=== PATIENT | female | born 1935 | race Hispanic/Latino ===

== ENCOUNTER 2017-02-07 13:11 | Emergency (ER) | payer MEDICARE ==
[2017-02-07 13:55] LABS: BASOPHILS % (AUTO) 0.6 % (0.0-5.0); EOSINOPHILS % (AUTO) 0.6 % (0.0-8.0); HEMATOCRIT 35.3 % (36-48); LYMPHOCYTES % (AUTO) 15.3 % (21.0-51.0); MEAN CORPUSCULAR HEMOGLOBIN 30.4 pg (27.0-33.0); MEAN CORPUSCULAR VOLUME 89.4 fL (79-99); MONOCYTES % (AUTO) 4.7 % (3.0-13.0); NEUTROPHILS % (AUTO) 78.8 % (40.0-77.0); PLATELET COUNT (AUTO) 266 K/uL (130-400); RED BLOOD CELL COUNT(AUTO) 3.95 MIL/uL (4.00-5.50); RED CELL DISTRIBUTION WIDTH 14.3 % (11.0-15.5); WHITE BLOOD COUNT (AUTO) 9.4 K/uL (4.8-10.8)
[2017-02-07 14:04] LABS: CREATININE 0.9 mg/dL (0.5-1.5); POTASSIUM 3.7 mmol/L (3.5-5.1)
[2017-02-07] MEDS ORDERED: OSELTAMIVIR PHOSPHATE 75 MG CAP ONE (15:12)
[2017-02-07] MEDS ORDERED: MORPHINE SULFATE 4 MG/1ML SYG ONE (15:13)
== END 2017-02-07 16:10 | disposition home or self-care (01) ==
LOC: EDH 13:11
DX: J11.1 Influenza due to unidentified influenza virus with other respiratory manifestations (principal); R42 Dizziness and giddiness; I10 Essential (primary) hypertension; E78.5 Hyperlipidemia, unspecified; Z88.0 Allergy status to penicillin
CPT/HCPCS: 36415; 70450; 72125; 80048; 84484; 85025; 87804 ×2; 93005; 96372; 99285; J2270

== ENCOUNTER 2017-05-28 20:58 | Emergency (ER) | payer MEDICARE ==
[2017-05-28 21:23] LABS: BASOPHILS % (AUTO) 0.7 % (0.0-5.0); EOSINOPHILS % (AUTO) 2.2 % (0.0-8.0); HEMATOCRIT 34.5 % (36-48); LYMPHOCYTES % (AUTO) 24.4 % (21.0-51.0); MEAN CORPUSCULAR HEMOGLOBIN 29.5 pg (27.0-33.0); MEAN CORPUSCULAR HGB CONC 34.4 g/dL (32.0-36.0); MEAN CORPUSCULAR VOLUME 85.6 fL (79-99); MONOCYTES % (AUTO) 6.7 % (3.0-13.0); PLATELET COUNT (AUTO) 313 K/uL (130-400); RED BLOOD CELL COUNT(AUTO) 4.03 MIL/uL (4.00-5.50); RED CELL DISTRIBUTION WIDTH 14.5 % (11.0-15.5); WHITE BLOOD COUNT (AUTO) 7.6 K/uL (4.8-10.8)
[2017-05-28 21:36] LABS: INR 0.95 (0.85-1.15); PARTIAL THROMBOPLASTIN TIME 26.1 SEC (26.3-35.5)
[2017-05-28 21:42] LABS: ALBUMIN 3.4 g/dL (3.5-5.0); BILIRUBIN,TOTAL 0.2 mg/dL (0.2-1.0); TOTAL PROTEIN, SERUM 7.6 g/dL (6.0-8.3)
[2017-05-28] MEDS ORDERED: LABETALOL HCL 5 MG/ML 20ML VIAL IV ONE (22:45)
== END 2017-05-28 23:37 | disposition home or self-care (01) ==
LOC: EDH 20:58
DX: R20.2 Paresthesia of skin (principal); E78.5 Hyperlipidemia, unspecified; I10 Essential (primary) hypertension; M19.90 Unspecified osteoarthritis, unspecified site; R79.1 Abnormal coagulation profile
CPT/HCPCS: 36415; 70450; 80053; 82948; 84484; 85025; 85610; 85730; 93005; 96374; 99285; J3490

== ENCOUNTER 2017-07-24 16:03 | Inpatient (IN) | payer MEDICARE ==
[~2017-07-24] VITALS: Ht 149.9 cm; Wt 79.1 kg
[2017-07-24] MEDS ORDERED: ASPIRIN 325 MG TABLET ONE (17:07)
[2017-07-24 17:24] LABS: EOSINOPHILS % (AUTO) 1.2 % (0.0-8.0); LYMPHOCYTES % (AUTO) 23.3 % (21.0-51.0); MEAN CORPUSCULAR HEMOGLOBIN 29.2 pg (27.0-33.0); MEAN CORPUSCULAR HGB CONC 34.1 g/dL (32.0-36.0); MEAN CORPUSCULAR VOLUME 85.8 fL (79-99); MONOCYTES % (AUTO) 6.1 % (3.0-13.0); NEUTROPHILS % (AUTO) 68.4 % (40.0-77.0); PLATELET COUNT (AUTO) 298 K/uL (130-400); RED BLOOD CELL COUNT(AUTO) 4.31 MIL/uL (4.00-5.50); RED CELL DISTRIBUTION WIDTH 13.9 % (11.0-15.5); WHITE BLOOD COUNT (AUTO) 7.2 K/uL (4.8-10.8)
[2017-07-24 17:34] LABS: CREATININE 0.9 mg/dL (0.5-1.5); POTASSIUM 4.1 mmol/L (3.5-5.1)
[2017-07-24 17:40] LABS: ALBUMIN 3.4 g/dL (3.5-5.0); BILIRUBIN,TOTAL 0.2 mg/dL (0.2-1.0); TOTAL PROTEIN, SERUM 7.7 g/dL (6.0-8.3)
[2017-07-24 18:12] LABS: INR 0.92 (0.85-1.15); PARTIAL THROMBOPLASTIN TIME 26.2 SEC (26.3-35.5); PROTHROMBIN TIME 9.7 SEC (9.6-11.6)
[2017-07-24] MEDS ORDERED: LABETALOL HCL 5 MG/ML 20ML VIAL IV ONE (20:53)
[2017-07-24 21:37] LABS: CREATINE KINASE MB 0.6 ng/mL (0.5-3.6); CREATINE KINASE, TOTAL 36 U/L (21-232); MYOGLOBIN 27 ng/mL (10-92); TROPONIN I < 0.04 ng/mL (0.00-0.06)
[2017-07-24] MEDS ORDERED: ACETAMINOPHEN-CODEINE 300/30MG TAB ONE (22:51)
[2017-07-24] MEDS ORDERED: ACETAMINOPHEN 325 MG TAB PO PRN (23:00)
[2017-07-24] MEDS ORDERED: HYDRALAZINE HCL 20 MG/ML VIAL ONE (23:27)
[2017-07-25] VITALS (7 sets, daily range): BP systolic 97–150; BP diastolic 53–73
[2017-07-25 00:14] LABS: CREATINE KINASE MB 0.5 ng/mL (0.5-3.6); CREATINE KINASE, TOTAL 29 U/L (21-232); MYOGLOBIN 29 ng/mL (10-92); TROPONIN I < 0.04 ng/mL (0.00-0.06)
[2017-07-25] MEDS ORDERED: HYDRALAZINE HCL 20 MG/ML VIAL IV PRN (02:15)
[2017-07-25 05:28] LABS: BASOPHILS % (AUTO) 0.9 % (0.0-5.0); EOSINOPHILS % (AUTO) 1.2 % (0.0-8.0); HEMATOCRIT 33.2 % (36-48); LYMPHOCYTES % (AUTO) 19.5 % (21.0-51.0); MEAN CORPUSCULAR HEMOGLOBIN 29.6 pg (27.0-33.0); MEAN CORPUSCULAR HGB CONC 34.6 g/dL (32.0-36.0); MEAN CORPUSCULAR VOLUME 85.6 fL (79-99); MONOCYTES % (AUTO) 5.5 % (3.0-13.0); NEUTROPHILS % (AUTO) 72.9 % (40.0-77.0); PLATELET COUNT (AUTO) 302 K/uL (130-400); RED BLOOD CELL COUNT(AUTO) 3.88 MIL/uL (4.00-5.50); RED CELL DISTRIBUTION WIDTH 14.1 % (11.0-15.5); WHITE BLOOD COUNT (AUTO) 8.4 K/uL (4.8-10.8)
[2017-07-25 05:51] LABS: HEMOGLOBIN A1C 5.6 % (4.0-6.0)
[2017-07-25 05:59] LABS: CARBON DIOXIDE 26 mmol/L (21-32); CHLORIDE 107 mmol/L (101-111); CHOLESTEROL 133 mg/dL (<200); CREATINE KINASE MB 0.5 ng/mL (0.5-3.6); CREATINE KINASE, TOTAL 24 U/L (21-232); CREATININE 1.3 mg/dL (0.5-1.5); GLOMERULAR FILTR. RATE CALC 42 mL/min (>60); GLUCOSE,RANDOM 110 mg/dL (70-105); HDL CHOLESTEROL 48 mg/dL (35-85); LDL DIRECT 73 mg/dL (0-99); MYOGLOBIN 39 ng/mL (10-92); POTASSIUM 4.2 mmol/L (3.5-5.1); SODIUM SERUM 141 mmol/L (136-145); TRIGLYCERIDES 124 mg/dL (30-200); TROPONIN I < 0.04 ng/mL (0.00-0.06); UREA NITROGEN, BLOOD 16 mg/dL (7-18)
[2017-07-25] MEDS: ENOXAPARIN SODIUM 40 MG/0.4 ML SYRINGE SQ SCH (08:29)
[2017-07-25] MEDS: FAMOTIDINE 20MG TAB 20 MG TAB PO SCH ×2 (09:00→20:32)
[2017-07-25] MEDS: ASPIRIN 325MG EC TAB 325 MG TABLET.DR PO SCH (09:00)
[2017-07-26 03:34] VITALS: BP 144/81
[2017-07-26 07:37] VITALS: BP 145/78
[2017-07-26] MEDS: ASPIRIN 325MG EC TAB 325 MG TABLET.DR PO SCH (08:54)
[2017-07-26] MEDS: ENOXAPARIN SODIUM 40 MG/0.4 ML SYRINGE SQ SCH (08:54)
[2017-07-26] MEDS: FAMOTIDINE 20MG TAB 20 MG TAB PO SCH (08:54)
[2017-07-26 11:19] VITALS: BP 171/79
[2017-07-26] MEDS ORDERED: ATOR10TA PO (14:05)
[2017-07-26] MEDS ORDERED: ASPI-1005 PO (14:05)
== END 2017-07-26 15:10 | disposition home or self-care (01) | DRG 69 ==
LOC: EDH 16:03 → EDHIP 20:28 → 2AH 07-25 00:22
PROVIDERS: ADMIT Internal Medicine Nephrology; ATTEND Internal Medicine Nephrology
DX: G45.9 Transient cerebral ischemic attack, unspecified (principal); I10 Essential (primary) hypertension; M19.90 Unspecified osteoarthritis, unspecified site; M54.12 Radiculopathy, cervical region; D64.9 Anemia, unspecified; E78.5 Hyperlipidemia, unspecified; Z82.49 Family history of ischemic heart disease and other diseases of the circulatory system; Z88.0 Allergy status to penicillin
CPT/HCPCS: 36415; 70450; 70544; 71045; 80048; 80053; 80061; 82550; 82553; 83036; 83874; 84484; 85025; 85610; 85730; 93880; J0360; J1650; J3490

== ENCOUNTER 2017-07-27 17:18 | Emergency (ER) | payer MEDICARE ==
[~2017-07-27 17:18] MED LIST: ASPI-1005 PO; ATOR10TA PO
[2017-07-27] MEDS ORDERED: CLONIDINE HCL 0.1 MG TABLET ONE (19:07)
[2017-07-27] MEDS ORDERED: ACETAMINOPHEN 325 MG TAB ONE (20:48)
== END 2017-07-27 21:36 | disposition home or self-care (01) ==
LOC: EDH 17:18
DX: I67.4 Hypertensive encephalopathy (principal); E78.5 Hyperlipidemia, unspecified; I10 Essential (primary) hypertension; M19.90 Unspecified osteoarthritis, unspecified site; Z88.0 Allergy status to penicillin; Z87.891 Personal history of nicotine dependence
CPT/HCPCS: 99291

== ENCOUNTER 2017-12-20 16:49 | Emergency (ER) | payer MEDICARE ==
[2017-12-20 17:19] LABS: APPEARANCE,URINE Cloudy (CLEAR); BILIRUBIN,URINE Negative (NEGATIVE); COLOR,URINE Yellow (YELLOW); GLUCOSE, URINE (UA) Negative (NEGATIVE); KETONES,URINE Negative (NEGATIVE); LEUKOCYTE ESTERASE ,URINE Large (NEGATIVE); NITRATE,URINE Positive (NEGATIVE); OCCULT BLOOD,URINE Moderate (NEGATIVE); PROTEIN,URINE POS 1+ (NEGATIVE)
[2017-12-20 17:56] LABS: BASOPHILS % (AUTO) 1.2 % (0.0-5.0); HEMATOCRIT 38.2 % (36-48); MEAN CORPUSCULAR HEMOGLOBIN 30.1 pg (27.0-33.0); MEAN CORPUSCULAR HGB CONC 34.6 g/dL (32.0-36.0); MONOCYTES % (AUTO) 6.1 % (3.0-13.0); NEUTROPHILS % (AUTO) 74.7 % (40.0-77.0); PLATELET COUNT (AUTO) 283 K/uL (130-400); RED BLOOD CELL COUNT(AUTO) 4.39 MIL/uL (4.00-5.50); RED CELL DISTRIBUTION WIDTH 14.4 % (11.0-15.5); WHITE BLOOD COUNT (AUTO) 8.3 K/uL (4.8-10.8)
[2017-12-20 18:07] LABS: BACTERIA,URINE Moderate /HPF (None Seen); WBC,URINE >100 /HPF (0-1)
[2017-12-20 18:09] LABS: SQUAMOUS EPITHELIAL CELL,UR Few /HPF (0-2); TRANSITIONAL EPI CELLS,URINE Few /HPF (None Seen)
[2017-12-20 18:27] LABS: CREATININE 0.9 mg/dL (0.5-1.5); POTASSIUM 4.5 mmol/L (3.5-5.1)
[2017-12-20 18:31] LABS: BILIRUBIN,TOTAL 0.4 mg/dL (0.2-1.0); TOTAL PROTEIN, SERUM 7.6 g/dL (6.0-8.3)
[2017-12-20] MEDS ORDERED: OSELTAMIVIR PHOSPHATE 75 MG CAP ONE (19:57)
[2017-12-20] MEDS ORDERED: LEVOFLOXACIN 500 MG/D5W 100 ML 100 ML ONE (19:58)
== END 2017-12-20 21:18 | disposition home or self-care (01) ==
LOC: EDH 16:49
DX: J10.1 Influenza due to other identified influenza virus with other respiratory manifestations (principal); M62.81 Muscle weakness (generalized); E87.1 Hypo-osmolality and hyponatremia; E78.5 Hyperlipidemia, unspecified; I10 Essential (primary) hypertension; M81.0 Age-related osteoporosis without current pathological fracture
CPT/HCPCS: 36415; 71045; 80053; 81001; 82550; 83690; 83880; 84484; 85025; 87077; 87088; 87186; 87804 ×2; 93005; 96365; 99285; J1956

== ENCOUNTER 2018-03-17 12:21 | Emergency (ER) | payer MEDICARE ==
[~2018-03-17 12:21] MED LIST changes: +AMLO5TAB9 PO; -ATOR10TA PO; +LOSA50TA64 PO; +METO50 PO; +NITR100C4 PO; +SIMV20TA6 PO
[2018-03-17] MEDS ORDERED: BENZONATATE 100 MG CAPSULE PO ONE (13:13)
[2018-03-17 13:27] LABS: BASOPHILS % (AUTO) 0.5 % (0.0-5.0); EOSINOPHILS % (AUTO) 1.1 % (0.0-8.0); HEMATOCRIT 36.4 % (36-48); LYMPHOCYTES % (AUTO) 9.4 % (21.0-51.0); MEAN CORPUSCULAR HEMOGLOBIN 30.4 pg (27.0-33.0); MEAN CORPUSCULAR VOLUME 89.4 fL (79-99); MONOCYTES % (AUTO) 5.1 % (3.0-13.0); NEUTROPHILS % (AUTO) 83.9 % (40.0-77.0); PLATELET COUNT (AUTO) 245 K/uL (130-400); RED BLOOD CELL COUNT(AUTO) 4.07 MIL/uL (4.00-5.50); WHITE BLOOD COUNT (AUTO) 9.7 K/uL (4.8-10.8)
[2018-03-17 13:34] LABS: CREATININE 0.8 mg/dL (0.5-1.5); POTASSIUM 3.7 mmol/L (3.5-5.1)
== END 2018-03-17 15:03 | disposition home or self-care (01) ==
LOC: EDH 12:21
DX: J20.9 Acute bronchitis, unspecified (principal); R55 Syncope and collapse; I10 Essential (primary) hypertension; E78.5 Hyperlipidemia, unspecified; M19.90 Unspecified osteoarthritis, unspecified site; Z90.49 Acquired absence of other specified parts of digestive tract; Z88.0 Allergy status to penicillin; Z87.891 Personal history of nicotine dependence
CPT/HCPCS: 36415; 71045; 80048; 84484; 85025; 93005

== ENCOUNTER 2018-07-23 15:03 | Inpatient (IN) | payer MEDICARE ==
[~2018-07-23] VITALS: Ht 157.5 cm; Wt 75.7 kg
[2018-07-23 15:28] LABS: BASOPHILS % (AUTO) 0.3 % (0.0-5.0); EOSINOPHILS % (AUTO) 0.2 % (0.0-8.0); HEMATOCRIT 39.3 % (36-48); LYMPHOCYTES % (AUTO) 4.7 % (21.0-51.0); MEAN CORPUSCULAR HEMOGLOBIN 30.5 pg (27.0-33.0); MEAN CORPUSCULAR HGB CONC 33.8 g/dL (32.0-36.0); MEAN CORPUSCULAR VOLUME 90.3 fL (79-99); MONOCYTES % (AUTO) 0.3 % (3.0-13.0); NEUTROPHILS % (AUTO) 94.5 % (40.0-77.0); NUCLEATED RED BLOOD CELLS 0.1 % (0.0-0.19); PLATELET COUNT (AUTO) 256 K/uL (130-400); RED BLOOD CELL COUNT(AUTO) 4.36 MIL/uL (4.00-5.50); RED CELL DISTRIBUTION WIDTH 15.1 % (11.0-15.5); WHITE BLOOD COUNT (AUTO) 11.7 K/uL (4.8-10.8)
[2018-07-23] MEDS ORDERED: ACETAMINOPHEN EXTRA STRENGTH 500 MG TABLET ONE (15:35)
[2018-07-23] MEDS ORDERED: MEROPENEM 1 GM VIAL ONE (15:35)
[2018-07-23] MEDS ORDERED: SODIUM CHLORIDE 0.9% 1000ML 1,000 ML IV ONE (15:36)
[2018-07-23] MEDS ORDERED: SODIUM CHLORIDE 0.9% 100 ML IV ONE (15:37)
[2018-07-23 15:38] LABS: CARBON DIOXIDE 26 mmol/L (21-32); CHLORIDE 99 mmol/L (101-111); CREATININE 0.9 mg/dL (0.5-1.5); GLOMERULAR FILTR. RATE CALC 64 mL/min (>60); GLUCOSE,RANDOM 161 mg/dL (70-105); INR 0.9 (0.85-1.15); PARTIAL THROMBOPLASTIN TIME 23.5 SEC (26.3-35.5); POTASSIUM 4.3 mmol/L (3.5-5.1); PROTHROMBIN TIME 9.5 SEC (9.6-11.6); SODIUM SERUM 137 mmol/L (136-145); UREA NITROGEN, BLOOD 14 mg/dL (7-18)
[2018-07-23 15:49] LABS: ALANINE AMINOTRANSFERASE 20 U/L (12-78); ALBUMIN 3.6 g/dL (3.5-5.0); ASPARTATE AMINOTRANSFERASE 15 U/L (10-37); BILIRUBIN,TOTAL 0.5 mg/dL (0.2-1.0); CREATINE KINASE, TOTAL 30 U/L (21-232); MYOGLOBIN 16 ng/mL (10-92); TOTAL PROTEIN, SERUM 8.5 g/dL (6.0-8.3); TROPONIN I < 0.04 ng/mL (0.00-0.06)
[2018-07-23 15:57] LABS: APPEARANCE,URINE CLOUDY (CLEAR); BILIRUBIN,URINE NEGATIVE (NEGATIVE); COLOR,URINE YELLOW (YELLOW); GLUCOSE, URINE (UA) NEGATIVE (NEGATIVE); KETONES,URINE NEGATIVE (NEGATIVE); LEUKOCYTE ESTERASE ,URINE LARGE (NEGATIVE); NITRATE,URINE POSITIVE (NEGATIVE); OCCULT BLOOD,URINE MODERATE (NEGATIVE); PROTEIN,URINE 100 mg/dL (NEGATIVE)
[2018-07-23 16:00] LABS: BACTERIA,URINE Moderate /HPF (None Seen); SQUAMOUS EPITHELIAL CELL,UR Rare /HPF (0-2); WBC,URINE 26-50 /HPF (0-1)
[2018-07-23] MEDS ORDERED: ACETAMINOPHEN 325 MG TAB PO PRN (18:00)
[2018-07-23 19:53] VITALS: BP 132/75
--- NOTE | 2018-07-23 20:00 | NUR ---
[facility] Luis[facility]. is received from ER admitted for UTI /Sepsis.Pt. is awake and coherent,denies pain or any discomfort.Pt. remained SR on the monitor.Call light placed within reach and pt instructed to use call light for assistance.
[2018-07-23] MEDS: LACTATED RINGERS 1000ML 1,000 ML IV SCH (21:07)
[2018-07-23 23:42] VITALS: BP 112/64
[2018-07-24] MEDS: MEROPENEM 1 GM VIAL IVP SCH ×4 (01:08→23:19)
[2018-07-24 03:41] LABS: HEMATOCRIT 33.9 % (36-48); MEAN CORPUSCULAR HEMOGLOBIN 29.5 pg (27.0-33.0); MEAN CORPUSCULAR HGB CONC 33.3 g/dL (32.0-36.0); MEAN CORPUSCULAR VOLUME 88.5 fL (79-99); PLATELET COUNT (AUTO) 257 K/uL (130-400); RED BLOOD CELL COUNT(AUTO) 3.83 MIL/uL (4.00-5.50); RED CELL DISTRIBUTION WIDTH 14.9 % (11.0-15.5)
[2018-07-24 03:45] VITALS: BP 151/79
[2018-07-24 03:55] LABS: ALBUMIN 2.5 g/dL (3.5-5.0); BILIRUBIN,TOTAL 0.5 mg/dL (0.2-1.0); CREATININE 0.8 mg/dL (0.5-1.5); POTASSIUM 3.7 mmol/L (3.5-5.1); TOTAL PROTEIN, SERUM 6.4 g/dL (6.0-8.3)
[2018-07-24] MEDS: LACTATED RINGERS 1000ML 1,000 ML IV SCH (06:24)
[2018-07-24] MEDS ORDERED: AMLO5TAB9 PO (07:41)
[2018-07-24] MEDS ORDERED: OMEP20CA10 PO (07:41)
[2018-07-24] MEDS ORDERED: ALBU8.5H8 IH (07:41)
[2018-07-24] MEDS ORDERED: FOLI1TAB15 PO (07:41)
[2018-07-24] MEDS ORDERED: ALEN70TA10 PO (07:41)
[2018-07-24 07:42] VITALS: BP 148/82
--- NOTE | 2018-07-24 11:17 | NUR ---
NUTRITION INTERVENTION: NUTRITION NOTIFICATION FOR ANNETTE, Pt CURRENTLY ON HEART HEALTHY DIET, <25% INTAKE DUE TO DISLIKE TO FOOD. Pt REQUESTING NUTRITION SUPPLEMENT, WILL PROVIDE SUPPLEMENT BID FOR ADDED CALORIC AND PROTEIN INTAKE. Pt ENCOURAGED TO EAT MEALS- Pt REPORTS SHE WILL ATTEMPT. LBM 07/23. 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 RECOMMENDATIONS: CONTINUE CURRENT DIET THERAPY. CONSULT RD NUTRITION CONCERNS ARISE. Addendum: 07/24/18 at [address] Amended: Links added.
[2018-07-24 11:20] VITALS: BP 156/87
[2018-07-24] MEDS: AMLODIPINE BESYLATE 5 MG TAB PO SCH (12:45)
[2018-07-24] MEDS: ASPIRIN 81MG TAB.CHEW PO SCH (12:45)
[2018-07-24] MEDS: FUROSEMIDE 10 MG/ML 4ML VIAL IV SCH ×2 (12:45→21:05)
[2018-07-24] MEDS: ENOXAPARIN SODIUM 40 MG/0.4 ML SYRINGE SQ SCH (12:46)
[2018-07-24] MEDS: FOLIC ACID 1 MG TABLET PO SCH (12:47)
[2018-07-24] MEDS ORDERED: POTASSIUM CHLORIDE 20 MEQ ERTAB PO ONE (12:51)
[2018-07-24] MEDS ORDERED: POTASSIUM CHLORIDE 20 MEQ ERTAB PO PRN (13:00)
[2018-07-24] MEDS ORDERED: POTASSIUM CHLORIDE 10% ELIXIR 20 MEQ/15 ML UDCUP PO PRN (13:00)
[2018-07-24] MEDS ORDERED: LIDOCAINE HCL-MPF 1% 2ML VIAL IVP PRN (13:00)
[2018-07-24] MEDS ORDERED: POTASSIUM CHLORIDE 20MEQ/100ML 100 ML IV PRN (13:00)
[2018-07-24 15:53] VITALS: BP 154/76
--- NOTE | 2018-07-24 16:04 | NUR ---
cm note met with patient states resides home alone, uses walker for ambulation, has provider 3hrs daily to assist with her personal care, cooking, has a daughter staying with her temporarily. but feels safe to return home , has family around in [place] where she resides for any needs. dc plan is back to home at pa. states no dc needs. Addendum: 07/24/18 at 1606 by GINETTE GROSSMAN CM Amended: Links added.
[2018-07-24 19:22] VITALS: BP 114/68
[2018-07-24] MEDS: SIMVASTATIN 20 MG TABLET PO SCH (21:05)
[2018-07-24 23:24] VITALS: BP 133/83
[2018-07-25] VITALS (7 sets, daily range): BP systolic 97–145; BP diastolic 57–80
[2018-07-25 04:11] LABS: BASOPHILS % (AUTO) 0.6 % (0.0-5.0); EOSINOPHILS % (AUTO) 0.8 % (0.0-8.0); HEMATOCRIT 34.4 % (36-48); LYMPHOCYTES % (AUTO) 12.2 % (21.0-51.0); MEAN CORPUSCULAR HEMOGLOBIN 30.5 pg (27.0-33.0); MEAN CORPUSCULAR HGB CONC 34.4 g/dL (32.0-36.0); MEAN CORPUSCULAR VOLUME 88.7 fL (79-99); MONOCYTES % (AUTO) 6.9 % (3.0-13.0); NEUTROPHILS % (AUTO) 79.5 % (40.0-77.0); PLATELET COUNT (AUTO) 245 K/uL (130-400); RED BLOOD CELL COUNT(AUTO) 3.88 MIL/uL (4.00-5.50); RED CELL DISTRIBUTION WIDTH 14.8 % (11.0-15.5); WHITE BLOOD COUNT (AUTO) 11.5 K/uL (4.8-10.8)
[2018-07-25 04:22] LABS: MAGNESIUM 2.1 mg/dL (1.80-2.40); PHOSPHORUS 3.7 mg/dL (2.5-4.9); POTASSIUM 3.7 mmol/L (3.5-5.1)
[2018-07-25] MEDS: FUROSEMIDE 10 MG/ML 4ML VIAL IV SCH (05:45)
[2018-07-25] MEDS: MEROPENEM 1 GM VIAL IVP SCH ×3 (06:29→23:46)
[2018-07-25] MEDS: ASPIRIN 81MG TAB.CHEW PO SCH (08:50)
[2018-07-25] MEDS: FOLIC ACID 1 MG TABLET PO SCH (08:50)
[2018-07-25] MEDS: PANTOPRAZOLE SODIUM 40 MG TABLET.DR PO SCH (08:50)
[2018-07-25] MEDS: AMLODIPINE BESYLATE 5 MG TAB PO SCH (08:50)
[2018-07-25] MEDS: ENOXAPARIN SODIUM 40 MG/0.4 ML SYRINGE SQ SCH (08:50)
[2018-07-25] MEDS ORDERED: ENOXAPARIN SODIUM 40 MG/0.4 ML SYRINGE SQ SCH (09:00)
[2018-07-25] MEDS ORDERED: ASPIRIN 81MG TAB.CHEW PO SCH (09:00)
[2018-07-25] MEDS ORDERED: AMLODIPINE BESYLATE 5 MG TAB PO SCH (09:00)
[2018-07-25] MEDS ORDERED: LACTATED RINGERS 1000ML IV SCH (14:15)
[2018-07-25] MEDS: FUROSEMIDE 20 MG TABLET PO SCH ×2 (16:44→16:57)
[2018-07-25] MEDS: SIMVASTATIN 20 MG TABLET PO SCH (20:22)
[2018-07-26 03:45] VITALS: BP 143/67
[2018-07-26] MEDS: FUROSEMIDE 20 MG TABLET PO SCH (05:17)
[2018-07-26] MEDS: MEROPENEM 1 GM VIAL IVP SCH (06:41)
--- NOTE | 2018-07-26 07:20 | NUR ---
Pt. remained stable,resting for the most part of the night.Report given to incoming NOD using SBAR all questions answered.
[2018-07-26 07:29] VITALS: BP 115/66
[2018-07-26] MEDS ORDERED: LEVOFLOXACIN 500 MG/D5W 100 ML 100 ML IV SCH (09:00)
[2018-07-26] MEDS: PANTOPRAZOLE SODIUM 40 MG TABLET.DR PO SCH (09:27)
[2018-07-26] MEDS: AMLODIPINE BESYLATE 5 MG TAB PO SCH (09:27)
[2018-07-26] MEDS: ASPIRIN 81MG TAB.CHEW PO SCH (09:27)
[2018-07-26] MEDS: FOLIC ACID 1 MG TABLET PO SCH (09:27)
[2018-07-26] MEDS: ENOXAPARIN SODIUM 40 MG/0.4 ML SYRINGE SQ SCH (09:28)
--- NOTE | 2018-07-26 10:14 | NUR ---
ANDERS PLAN VISITED WITH PATIENT. PATIENT SAYS DAUGHTER WORKS AT A FACILITY DOES NOT KNOW WHICH CALLED OTHER DAUGHTER SAID WILL CALL SISTER BECAUSE SHE DOES NOT KNOW EITHER. GAVE HER MY NUMBER TO CALL ME BACK. PATIENT WILL NEED 10 DAYS OF ABX AND PHYSICAL THERAPY. Addendum: 07/26/18 at 1016 by YINA SYED RN CM Amended: Links added.
[2018-07-26 11:16] VITALS: BP 107/65
--- NOTE | 2018-07-26 14:24 | NUR ---
GAVE REPORT TO [facility]. PENDING FOR ADVERTISING REPRESENTATIVE.
--- NOTE | 2018-07-26 16:21 | NUR ---
DC PLAN DAUGHTER SPOKE TO NURSE SAID THAT [facility] IS THE FACILITY DAUGHTER WORKS AT. INFO SENT. PHU DONE. PATIENT ACCEPTED. Addendum: 07/26/18 at 1623 by YINA SYED RN CM Amended: Links added.
== END 2018-07-26 15:10 | DRG 872 ==
LOC: EDH 15:03 → EDHIP 17:21 → 2AH 19:35
PROVIDERS: ADMIT Internal Medicine Critical Care Medicine; ATTEND Internal Medicine Critical Care Medicine
DX: A41.51 Sepsis due to Escherichia coli [E. coli] (principal); N39.0 Urinary tract infection, site not specified; R65.20 Severe sepsis without septic shock; I10 Essential (primary) hypertension; E78.5 Hyperlipidemia, unspecified; M19.90 Unspecified osteoarthritis, unspecified site; Z88.0 Allergy status to penicillin
CPT/HCPCS: 36415; 71045; 80048; 80053; 81001; 82550; 83605; 83735; 83874; 84100; 84484; 85025; 85027; 85610; 85730; 87040; 87077; 87088; 87186; 87804; 93005; 97039; 99291; G0378; J1650; J1940; J1956; J2185; J7030; J7120

== ENCOUNTER 2018-12-11 12:45 | Emergency (ER) | payer MEDICARE ==
[~2018-12-11 12:45] MED LIST changes: +ALBU8.5H8 IH; +ALEN70TA10 PO; +FOLI1TAB15 PO; +IBUP-2070 PO; +LEVO500T2 PO; -LOSA50TA64 PO; -METO50 PO; -NITR100C4 PO; +OMEP-50 PO; +SIMV-43 PO; -SIMV20TA6 PO
[2018-12-11] MEDS ORDERED: SODIUM CHLORIDE 0.9% 500ML 500 ML IV ONE (13:37)
[2018-12-11] MEDS ORDERED: ONDANSETRON HCL 4 MG/2 ML VIAL ONE (13:37)
[2018-12-11 14:05] LABS: BASOPHILS % (AUTO) 0.6 % (0.0-5.0); EOSINOPHILS % (AUTO) 0.6 % (0.0-8.0); HEMATOCRIT 38.8 % (36-48); MEAN CORPUSCULAR HEMOGLOBIN 30.2 pg (27.0-33.0); MEAN CORPUSCULAR HGB CONC 34.6 g/dL (32.0-36.0); MEAN CORPUSCULAR VOLUME 87.2 fL (79-99); MONOCYTES % (AUTO) 4.3 % (3.0-13.0); NEUTROPHILS % (AUTO) 79.5 % (40.0-77.0); NUCLEATED RED BLOOD CELLS 0.1 % (0.0-0.19); PLATELET COUNT (AUTO) 307 K/uL (130-400); RED BLOOD CELL COUNT(AUTO) 4.45 MIL/uL (4.00-5.50); RED CELL DISTRIBUTION WIDTH 14.4 % (11.0-15.5); WHITE BLOOD COUNT (AUTO) 10.3 K/uL (4.8-10.8)
[2018-12-11 14:11] LABS: POTASSIUM 4.1 mmol/L (3.5-5.1)
[2018-12-11 14:16] LABS: ALBUMIN 3.4 g/dL (3.5-5.0); BILIRUBIN,DIRECT 0.1 mg/dL (0.0-0.3); BILIRUBIN,TOTAL 0.3 mg/dL (0.2-1.0); TOTAL PROTEIN, SERUM 8.4 g/dL (6.0-8.3)
[2018-12-11 14:28] LABS: B-TYPE NATRIURETIC PEPTIDE 28 pg/mL (0-100)
[2018-12-11 14:39] LABS: APPEARANCE,URINE Clear (CLEAR); BILIRUBIN,URINE Negative (NEGATIVE); COLOR,URINE Yellow (YELLOW); GLUCOSE, URINE (UA) Negative (NEGATIVE); KETONES,URINE Negative (NEGATIVE); LEUKOCYTE ESTERASE ,URINE Moderate (NEGATIVE); NITRATE,URINE Negative (NEGATIVE); OCCULT BLOOD,URINE Negative (NEGATIVE); PROTEIN,URINE Negative (NEGATIVE)
[2018-12-11 14:55] LABS: BACTERIA,URINE Few /HPF (None Seen); RBC,URINE None Seen /HPF (0-1)
== END 2018-12-11 15:19 | disposition home or self-care (01) ==
LOC: EDH 12:45
DX: R53.1 Weakness (principal); R42 Dizziness and giddiness; I10 Essential (primary) hypertension; E78.5 Hyperlipidemia, unspecified; M19.90 Unspecified osteoarthritis, unspecified site; Z90.49 Acquired absence of other specified parts of digestive tract; Z88.0 Allergy status to penicillin; Z87.891 Personal history of nicotine dependence
CPT/HCPCS: 36415; 70450; 80048; 80076; 81001; 82550; 83880; 84484; 85025; 93005; 96374; 99285; J2405; J7040

== ENCOUNTER 2020-05-28 | Emergency (ER) | payer MEDICARE ==
[~2020-05-28] MED LIST changes: -ALEN70TA10 PO; +ALEN70TA80 PO; +AMLO-257 PO; -AMLO5TAB9 PO; -OMEP-50 PO; +OMEP20CA12 PO
[2020-05-28 00:42] LABS: CREATININE 1.1 mg/dL (0.5-1.5); POTASSIUM 3.9 mmol/L (3.5-5.1)
[2020-05-28 00:47] LABS: ALBUMIN 3.4 g/dL (3.5-5.0); BILIRUBIN,TOTAL 0.2 mg/dL (0.2-1.0); TOTAL PROTEIN, SERUM 8.1 g/dL (6.0-8.3)
[2020-05-28 00:52] LABS: BASOPHILS % (AUTO) 0.4 % (0.0-5.0); EOSINOPHILS % (AUTO) 2.9 % (0.0-8.0); HEMATOCRIT 38.3 % (36-48); LYMPHOCYTES % (AUTO) 28.1 % (21.0-51.0); MEAN CORPUSCULAR HEMOGLOBIN 29.1 pg (27.0-33.0); MEAN CORPUSCULAR HGB CONC 33.7 g/dL (32.0-36.0); MEAN CORPUSCULAR VOLUME 86.5 fL (79-99); MONOCYTES % (AUTO) 7.3 % (3.0-13.0); NEUTROPHILS % (AUTO) 60.9 % (40.0-77.0); PLATELET COUNT (AUTO) 290 K/uL (130-400); RED BLOOD CELL COUNT(AUTO) 4.43 MIL/uL (4.00-5.50); RED CELL DISTRIBUTION WIDTH 13.3 % (11.0-15.5); WHITE BLOOD COUNT (AUTO) 7.5 K/uL (4.8-10.8)
[2020-05-28] MEDS ORDERED: IOHEXOL 350 MG/ML 100ML INFUS..BTL IV ONE (01:27)
[2020-05-28 01:31] LABS: APPEARANCE,URINE Clear (CLEAR); BILIRUBIN,URINE Negative (NEGATIVE); COLOR,URINE Yellow (YELLOW); GLUCOSE, URINE (UA) Negative (NEGATIVE); KETONES,URINE Negative (NEGATIVE); LEUKOCYTE ESTERASE ,URINE Negative (NEGATIVE); NITRATE,URINE Negative (NEGATIVE); OCCULT BLOOD,URINE Negative (NEGATIVE); PH,URINE 6.5 (5.0-8.0); PROTEIN,URINE Negative (NEGATIVE); UROBILINOGEN,URINE 0.2 mg/dL (0.2-1.0)
== END 2020-05-28 06:42 | disposition home or self-care (01) ==
LOC: EDH
DX: R47.81 Slurred speech (principal); M19.90 Unspecified osteoarthritis, unspecified site; E78.5 Hyperlipidemia, unspecified; I10 Essential (primary) hypertension; Z90.49 Acquired absence of other specified parts of digestive tract; Z88.0 Allergy status to penicillin
CPT/HCPCS: 36415; 70450; 70496; 70498; 80053; 81003; 85025; 99285; Q9967

== ENCOUNTER 2020-07-30 15:22 | Observation (INO) | payer MEDICARE ==
[~2020-07-30] VITALS: Ht 142.2 cm; Wt 80.1 kg
[2020-07-30 15:24] VITALS: BP 114/63
[2020-07-30 16:00] LABS: BASOPHILS % (AUTO) 0.6 % (0.0-5.0); HEMATOCRIT 36.9 % (36-48); LYMPHOCYTES % (AUTO) 21.2 % (21.0-51.0); MEAN CORPUSCULAR HEMOGLOBIN 28.8 pg (27.0-33.0); MEAN CORPUSCULAR HGB CONC 33.1 g/dL (32.0-36.0); MONOCYTES % (AUTO) 6.3 % (3.0-13.0); NEUTROPHILS % (AUTO) 70.4 % (40.0-77.0); PLATELET COUNT (AUTO) 328 K/uL (130-400); RED BLOOD CELL COUNT(AUTO) 4.24 MIL/uL (4.00-5.50); RED CELL DISTRIBUTION WIDTH 13.2 % (11.0-15.5); WHITE BLOOD COUNT (AUTO) 8.2 K/uL (4.8-10.8)
[2020-07-30 16:11] LABS: CARBON DIOXIDE 24 mmol/L (21-32); CHLORIDE 101 mmol/L (101-111); CREATININE 1.2 mg/dL (0.5-1.5); GLOMERULAR FILTR. RATE CALC 46 mL/min (>60); GLUCOSE,RANDOM 117 mg/dL (70-105); POTASSIUM 4.4 mmol/L (3.5-5.1); SODIUM SERUM 135 mmol/L (136-145); UREA NITROGEN, BLOOD 15 mg/dL (7-18)
[2020-07-30 16:12] LABS: PROTHROMBIN TIME 10.9 SEC (9.6-11.6)
[2020-07-30 16:14] LABS: PARTIAL THROMBOPLASTIN TIME 25.8 SEC (26.3-35.5)
[2020-07-30 16:22] LABS: ALANINE AMINOTRANSFERASE 21 U/L (12-78); ALBUMIN 3.5 g/dL (3.5-5.0); ASPARTATE AMINOTRANSFERASE 21 U/L (10-37); BILIRUBIN,TOTAL 0.2 mg/dL (0.2-1.0); CREATINE KINASE, TOTAL 60 U/L (21-232); MYOGLOBIN 48 ng/mL (10-92); TOTAL PROTEIN, SERUM 8.2 g/dL (6.0-8.3); TROPONIN I < 0.04 ng/mL (0.00-0.06)
[2020-07-30 16:34] LABS: B-TYPE NATRIURETIC PEPTIDE 72 pg/mL (0-100)
[2020-07-30 17:26] VITALS: BP 140/73
[2020-07-30] MEDS ORDERED: ACETAMINOPHEN 325 MG TAB ONE (17:44)
[2020-07-30] MEDS ORDERED: ACETAMINOPHEN 325 MG TAB PO ONE (17:45)
[2020-07-30 21:38] VITALS: BP 128/62
[2020-07-31 06:20] VITALS: BP 150/73
[2020-07-31 06:45] LABS: HEMATOCRIT 36.1 % (36-48); MEAN CORPUSCULAR HEMOGLOBIN 29.5 pg (27.0-33.0); MEAN CORPUSCULAR HGB CONC 33.8 g/dL (32.0-36.0); MEAN CORPUSCULAR VOLUME 87.2 fL (79-99); PLATELET COUNT (AUTO) 288 K/uL (130-400); RED BLOOD CELL COUNT(AUTO) 4.14 MIL/uL (4.00-5.50); RED CELL DISTRIBUTION WIDTH 13.1 % (11.0-15.5); WHITE BLOOD COUNT (AUTO) 6.7 K/uL (4.8-10.8)
[2020-07-31 07:06] LABS: CARBON DIOXIDE 24 mmol/L (21-32); CHLORIDE 105 mmol/L (101-111); CREATINE KINASE, TOTAL 47 U/L (21-232); GLOMERULAR FILTR. RATE CALC 56 mL/min (>60); GLUCOSE,RANDOM 99 mg/dL (70-105); MYOGLOBIN 50 ng/mL (10-92); POTASSIUM 4.3 mmol/L (3.5-5.1); SODIUM SERUM 139 mmol/L (136-145); TROPONIN I < 0.04 ng/mL (0.00-0.06); UREA NITROGEN, BLOOD 14 mg/dL (7-18)
[2020-07-31 07:38] LABS: EOSINOPHILS % (MANUAL) 3 % (1-6); LYMPHOCYTES % (MANUAL) 24 % (22-44); MAN.DIFF COMMENT-IMPRESSION MANUAL DIFFERENTIAL; MONOCYTES % (MANUAL) 6 % (2-9); SEGMENTED NEUTROPHILS % 67 % (40-70)
[2020-07-31 07:40] LABS: PLATELET MORPHOLOGY COMMENT ADEQUATE
[2020-07-31 08:00] VITALS: BP 127/56
[2020-07-31 11:57] VITALS: BP 134/67
[2020-07-31] MEDS ORDERED: NAPR-1196 PO (15:00)
[2020-07-31] MEDS ORDERED: ERGO500093 PO (15:07)
[2020-07-31] MEDS ORDERED: AMLO-258 PO (15:07)
[2020-07-31 16:00] VITALS: BP 146/72
[2020-07-31 19:58] VITALS: BP 111/57
[2020-07-31] MEDS ORDERED: ACETAMINOPHEN 325 MG TAB PO PRN (20:30)
[2020-07-31] MEDS ORDERED: ONDANSETRON 4MG INJ IVP PRN (20:30)
[2020-08-01] VITALS (8 sets, daily range): BP systolic 102–140; BP diastolic 44–65
[2020-08-02 00:55] VITALS: BP 138/57
[2020-08-02 04:07] VITALS: BP 130/61
[2020-08-02 07:30] VITALS: BP 114/61
[2020-08-02 11:00] VITALS: BP 132/54
== END 2020-08-02 15:00 | disposition home or self-care (01) ==
LOC: EDH 15:22 → EDHIP 18:30 → 3DH 07-31 06:19
PROVIDERS: ADMIT Internal Medicine Infectious Disease; ATTEND Internal Medicine Infectious Disease
DX: R55 Syncope and collapse (principal); I10 Essential (primary) hypertension; E78.5 Hyperlipidemia, unspecified; I25.10 Atherosclerotic heart disease of native coronary artery without angina pectoris; I63.9 Cerebral infarction, unspecified; D84.9 Immunodeficiency, unspecified; E78.00 Pure hypercholesterolemia, unspecified; E66.9 Obesity, unspecified; Z79.899 Other long term (current) drug therapy
CPT/HCPCS: 36415 ×2; 70450; 71045; 80048; 80053; 82550 ×2; 83735; 83874 ×2; 83880; 84484 ×3; 85025 ×2; 85610; 85730; 93005; 93880; 99285; G0378 ×69

== ENCOUNTER 2020-09-02 13:05 | Emergency (ER) | payer MEDICARE ==
[~2020-09-02] VITALS: Ht 132.1 cm; Wt 80.3 kg
[~2020-09-02 13:05] MED LIST changes: -ALBU8.5H8 IH; -ALEN70TA80 PO; -AMLO-257 PO; +AMLO-258 PO; -ASPI-1005 PO; +ERGO500093 PO; -FOLI1TAB15 PO; -IBUP-2070 PO; -LEVO500T2 PO; +NAPR-1196 PO; -OMEP20CA12 PO; -SIMV-43 PO
[2020-09-02 13:09] VITALS: BP 116/52
[2020-09-02 14:16] VITALS: BP 116/48
[2020-09-02 14:21] LABS: BASOPHILS % (AUTO) 0.3 % (0.0-5.0); EOSINOPHILS % (AUTO) 0.4 % (0.0-8.0); HEMATOCRIT 37.1 % (36-48); MEAN CORPUSCULAR HEMOGLOBIN 29.2 pg (27.0-33.0); MEAN CORPUSCULAR HGB CONC 33.2 g/dL (32.0-36.0); MEAN CORPUSCULAR VOLUME 88.1 fL (79-99); MONOCYTES % (AUTO) 3.9 % (3.0-13.0); PLATELET COUNT (AUTO) 323 K/uL (130-400); RED BLOOD CELL COUNT(AUTO) 4.21 MIL/uL (4.00-5.50); WHITE BLOOD COUNT (AUTO) 9.2 K/uL (4.8-10.8)
[2020-09-02 14:34] LABS: CARBON DIOXIDE 25 mmol/L (21-32); CHLORIDE 100 mmol/L (101-111); CREATININE 1.1 mg/dL (0.5-1.5); GLOMERULAR FILTR. RATE CALC 51 mL/min (>60); GLUCOSE,RANDOM 117 mg/dL (70-105); POTASSIUM 4.1 mmol/L (3.5-5.1); SODIUM SERUM 136 mmol/L (136-145); UREA NITROGEN, BLOOD 12 mg/dL (7-18)
[2020-09-02 14:53] LABS: ALANINE AMINOTRANSFERASE 16 U/L (12-78); ALBUMIN 3.3 g/dL (3.5-5.0); ASPARTATE AMINOTRANSFERASE 17 U/L (10-37); BILIRUBIN,TOTAL 0.3 mg/dL (0.2-1.0); CREATINE KINASE, TOTAL 78 U/L (21-232); TROPONIN I < 0.04 ng/mL (0.00-0.06)
[2020-09-02 15:09] LABS: MYOGLOBIN 62 ng/mL (10-92)
[2020-09-02] MEDS ORDERED: NAPR-1180 PO (16:01)
[2020-09-02 16:20] VITALS: BP 148/76
[2020-09-02] MEDS ORDERED: NAPROXEN 250 MG TAB PO SCH (16:30)
[2020-09-02] MEDS ORDERED: NAPROXEN 250 MG TAB ONE (16:31)
== END 2020-09-02 16:42 | disposition home or self-care (01) ==
LOC: EDH 13:05
DX: R51.9 Headache, unspecified (principal); R42 Dizziness and giddiness; I10 Essential (primary) hypertension; Z88.0 Allergy status to penicillin; Z79.1 Long term (current) use of non-steroidal anti-inflammatories (NSAID)
CPT/HCPCS: 36415; 70450; 80053; 82550; 83874; 84484; 85025; 93005

== ENCOUNTER 2020-11-04 21:08 | Emergency (ER) | payer MEDICARE ==
[~2020-11-04 21:08] MED LIST changes: +NAPR-1180 PO
[2020-11-04 21:17] VITALS: BP 140/61
[2020-11-04 21:46] LABS: BASOPHILS % (AUTO) 0.6 % (0.0-5.0); EOSINOPHILS % (AUTO) 1.7 % (0.0-8.0); HEMATOCRIT 36.8 % (36-48); LYMPHOCYTES % (AUTO) 18.9 % (21.0-51.0); MEAN CORPUSCULAR HGB CONC 33.7 g/dL (32.0-36.0); MEAN CORPUSCULAR VOLUME 86.2 fL (79-99); MONOCYTES % (AUTO) 5.8 % (3.0-13.0); NEUTROPHILS % (AUTO) 72.5 % (40.0-77.0); PLATELET COUNT (AUTO) 309 K/uL (130-400); RED BLOOD CELL COUNT(AUTO) 4.27 MIL/uL (4.00-5.50); RED CELL DISTRIBUTION WIDTH 13.2 % (11.0-15.5); WHITE BLOOD COUNT (AUTO) 10.3 K/uL (4.8-10.8)
[2020-11-04 21:49] LABS: APPEARANCE,URINE Clear (CLEAR); BILIRUBIN,URINE Negative (NEGATIVE); COLOR,URINE Yellow (YELLOW); GLUCOSE, URINE (UA) Negative (NEGATIVE); KETONES,URINE Negative (NEGATIVE); LEUKOCYTE ESTERASE ,URINE Negative (NEGATIVE); NITRATE,URINE Negative (NEGATIVE); OCCULT BLOOD,URINE Negative (NEGATIVE); PH,URINE 5.5 (5.0-8.0); PROTEIN,URINE Negative (NEGATIVE)
[2020-11-04 21:56] LABS: CREATININE 0.9 mg/dL (0.5-1.5); POTASSIUM 3.4 mmol/L (3.5-5.1)
[2020-11-04] MEDS ORDERED: MORPHINE 4 MG SYG IM ONE (22:00)
[2020-11-04 22:01] LABS: ALBUMIN 2.9 g/dL (3.5-5.0); BILIRUBIN,TOTAL 0.2 mg/dL (0.2-1.0); TOTAL PROTEIN, SERUM 7.8 g/dL (6.0-8.3)
[2020-11-04 22:29] VITALS: BP 133/62
[2020-11-04 23:22] VITALS: BP 111/57
[2020-11-05 00:17] VITALS: BP 129/66
[2020-11-05 01:47] VITALS: BP 120/42
[2020-11-05 02:22] VITALS: BP_SYST 107; BP_SYST 127; BP_DIAS 62; BP_DIAS 63
== END 2020-11-05 03:14 | disposition home or self-care (01) ==
LOC: EDH 21:08
DX: R10.30 Lower abdominal pain, unspecified (principal); I10 Essential (primary) hypertension; E78.00 Pure hypercholesterolemia, unspecified; M19.90 Unspecified osteoarthritis, unspecified site; Z79.1 Long term (current) use of non-steroidal anti-inflammatories (NSAID); Z88.0 Allergy status to penicillin; Z90.49 Acquired absence of other specified parts of digestive tract
CPT/HCPCS: 36415; 74176; 80053; 81003; 83690; 84484; 85025; 93005; 96372; 99285; J2270

== ENCOUNTER 2021-01-30 11:22 | Emergency (ER) | payer MEDICARE ==
[~2021-01-30] VITALS: Ht 167.6 cm; Wt 86.2 kg
[2021-01-30 11:39] LABS: BASOPHILS % (AUTO) 0.6 % (0.0-5.0); EOSINOPHILS % (AUTO) 3.3 % (0.0-8.0); HEMATOCRIT 39.2 % (36-48); LYMPHOCYTES % (AUTO) 17.8 % (21.0-51.0); MEAN CORPUSCULAR HEMOGLOBIN 28.8 pg (27.0-33.0); MEAN CORPUSCULAR HGB CONC 32.7 g/dL (32.0-36.0); MEAN CORPUSCULAR VOLUME 88.1 fL (79-99); MONOCYTES % (AUTO) 4.3 % (3.0-13.0); NEUTROPHILS % (AUTO) 73.5 % (40.0-77.0); PLATELET COUNT (AUTO) 291 K/uL (130-400); RED BLOOD CELL COUNT(AUTO) 4.45 MIL/uL (4.00-5.50); RED CELL DISTRIBUTION WIDTH 14.2 % (11.0-15.5); WHITE BLOOD COUNT (AUTO) 8.4 K/uL (4.8-10.8)
[2021-01-30 11:55] LABS: POTASSIUM 3.9 mmol/L (3.5-5.1)
[2021-01-30 11:59] LABS: ALBUMIN 3.1 g/dL (3.5-5.0); BILIRUBIN,TOTAL 0.2 mg/dL (0.2-1.0); TOTAL PROTEIN, SERUM 7.7 g/dL (6.0-8.3)
[2021-01-30 12:21] LABS: APPEARANCE,URINE Clear (CLEAR); BILIRUBIN,URINE Negative (NEGATIVE); COLOR,URINE Yellow (YELLOW); GLUCOSE, URINE (UA) Negative (NEGATIVE); KETONES,URINE Negative (NEGATIVE); LEUKOCYTE ESTERASE ,URINE Moderate (NEGATIVE); NITRATE,URINE Positive (NEGATIVE); OCCULT BLOOD,URINE Negative (NEGATIVE); PROTEIN,URINE Negative (NEGATIVE)
[2021-01-30] MEDS ORDERED: ACETAMINOPHEN 500 MG TABLET PO SCH (12:30)
[2021-01-30 13:04] LABS: BACTERIA,URINE Many /HPF (None Seen); RBC,URINE 0-1 /HPF (0-1); SQUAMOUS EPITHELIAL CELL,UR Rare /HPF (0-2); WBC,URINE 26-50 /HPF (0-1)
[2021-01-30] MEDS ORDERED: MACR100 PO (14:40)
[2021-01-30 14:55] VITALS: BP 155/75
== END 2021-01-30 15:33 | disposition home or self-care (01) ==
LOC: EDH 11:22
DX: N39.0 Urinary tract infection, site not specified (principal); E78.00 Pure hypercholesterolemia, unspecified; I10 Essential (primary) hypertension; Z88.0 Allergy status to penicillin; Z79.1 Long term (current) use of non-steroidal anti-inflammatories (NSAID); W06.XXXA Fall from bed, initial encounter
CPT/HCPCS: 36415; 70450; 71045; 80053; 81001; 84484; 85025; 87077; 87088; 87186; 93005

== ENCOUNTER 2021-08-11 05:36 | Emergency (ER) | payer MEDICARE ==
[~2021-08-11] VITALS: Ht 147.3 cm; Wt 68.0 kg
[~2021-08-11 05:36] MED LIST changes: +MACR100 PO; +MELO7.5T12 PO
[2021-08-11] MEDS ORDERED: METOPROLOL TARTRATE 25 MG TAB PO ONE (06:30)
[2021-08-11] MEDS ORDERED: LABETALOL 20MG VIAL IV ONE (08:00)
[2021-08-11] MEDS ORDERED: ACETAMINOPHEN 325 MG TAB ONE (08:45)
[2021-08-11 08:58] VITALS: BP 175/72
[2021-08-11] MEDS ORDERED: ACETAMINOPHEN 325 MG TAB PO ONE (09:00)
== END 2021-08-11 08:54 | disposition home or self-care (01) ==
LOC: EDH 05:36
DX: I10 Essential (primary) hypertension (principal); R26.9 Unspecified abnormalities of gait and mobility; E78.00 Pure hypercholesterolemia, unspecified; E66.9 Obesity, unspecified; Z88.0 Allergy status to penicillin; Z79.1 Long term (current) use of non-steroidal anti-inflammatories (NSAID); Z79.899 Other long term (current) drug therapy; Z90.49 Acquired absence of other specified parts of digestive tract; Z68.31 Body mass index [BMI] 31.0-31.9, adult
CPT/HCPCS: 96374; 99284; J3490

== ENCOUNTER 2021-08-18 00:42 | Emergency (ER) | payer MEDICARE ==
[~2021-08-18] VITALS: Ht 152.4 cm; Wt 72.6 kg
[2021-08-18] MEDS ORDERED: MORPHINE 2 MG SYG IM ONE (02:30)
[2021-08-18] MEDS ORDERED: ACET-2079 PO (04:11)
[2021-08-18 04:15] VITALS: BP 107/58
== END 2021-08-18 05:38 | disposition home or self-care (01) ==
LOC: EDH 00:42
DX: R07.89 Other chest pain (principal); M54.6 Pain in thoracic spine; M54.50 Low back pain, unspecified; I10 Essential (primary) hypertension; M19.90 Unspecified osteoarthritis, unspecified site; E66.9 Obesity, unspecified; Z88.0 Allergy status to penicillin; Z79.1 Long term (current) use of non-steroidal anti-inflammatories (NSAID); Z68.31 Body mass index [BMI] 31.0-31.9, adult; W18.39XA Other fall on same level, initial encounter; Y93.89 Activity, other specified; Y92.89 Other specified places as the place of occurrence of the external cause; Y99.8 Other external cause status
CPT/HCPCS: 71250; 72128; 96372